=== PATIENT | male | born 1955 | race Hispanic/Latino ===

== ENCOUNTER 2017-11-19 16:13 | Emergency (ER) | payer SELFPAY ==
[2017-11-19] MEDS ORDERED: NORCO 5/325 PO ONE (19:37)
[2017-11-19] MEDS ORDERED: ZOFRAN ODT PO ONE (19:37)
[2017-11-19] MEDS ORDERED: BACTRIM DS PO ONE (19:38)
--- NOTE | 2017-11-19 19:44 | Emergency Department Report ---
- General Chief complaint: Animal Bite Stated complaint: INSECT BITE Time Seen by Provider: 11/19/17 19:37 Source: patient Mode of arrival: Ambulatory Limitations: No Limitations - History of Present Illness Initial comments: 62-year-old male past medical history hepatitis C, CAD presents with complaint of probable spider bite to the right inner thigh. Patient states it occurred 2 days ago. Patient is complaining of pain and abscess in right inner thigh. Denies fevers or chills. Patient is awake alert and oriented 3. Denies any other lesions. Visible small abscess with surrounding cellulitis right inner thigh. Approximately 3-4 cm in diameter. MD complaint: insect bite/sting, abscess/boil Onset/Timin -: days(s) Location: RLE (right inner thigh) Severity: moderate Severity scale (0 -10): 5 Quality: aching Consistency: constant Context: none Associated symptoms: denies other symptoms - Related Data Previous Rx's Medication Instructions Recorded Last Taken Type Acetaminophen/Codeine [Tylenol 1 tab PO Q6H PRN #5 tab 11/19/17 Unknown Rx /Codeine # 3 tab] Cephalexin [Keflex] 500 mg PO Q12HR #14 cap 11/19/17 Unknown Rx Sulfamethoxazole/Trimethoprim 1 each PO BID #14 tablet 11/19/17 Unknown Rx [Bactrim DS TAB] Allergies Allergy/AdvReac Type Severity Reaction Status Date / Time ketorolac [From Toradol] Allergy Unknown Verified 11/19/17 16:31 tramadol Allergy Unknown Verified 11/19/17 16:31 Abscess Boil HPI - HPI Chief Complaint: Animal Bite Stated Complaint: INSECT BITE Time Seen by Provider: 11/19/17 19:37 Home Medications: Previous Rx's Medication Instructions Recorded Last Taken Type Acetaminophen/Codeine [Tylenol 1 tab PO Q6H PRN #5 tab 11/19/17 Unknown Rx /Codeine # 3 tab] Cephalexin [Keflex] 500 mg PO Q12HR #14 cap 11/19/17 Unknown Rx Sulfamethoxazole/Trimethoprim 1 each PO BID #14 tablet 11/19/17 Unknown Rx [Bactrim DS TAB] Allergies/Adverse Reactions: Allergies Allergy/AdvReac Type Severity Reaction Status Date / Time ketorolac [From Toradol] Allergy Unknown Verified 11/19/17 16:31 tramadol Allergy Unknown Verified 11/19/17 16:31 ED Review of Systems ROS: Stated complaint: INSECT BITE Other details as noted in HPI Constitutional: denies: chills, fever Eyes: denies: eye pain, eye discharge, vision change ENT: denies: ear pain, throat pain Respiratory: denies: cough, shortness of breath, wheezing Cardiovascular: denies: chest pain, palpitations Endocrine: no symptoms reported Gastrointestinal: denies: abdominal pain, nausea, diarrhea Genitourinary: denies: urgency, dysuria Musculoskeletal: denies: back pain, joint swelling, arthralgia Skin: as per HPI, change in color. denies: rash, lesions Neurological: denies: headache, weakness, paresthesias Psychiatric: denies: anxiety, depression Hematological/Lymphatic: denies: easy bleeding, easy bruising ED Past Medical Hx - Surgical History Additional Surgical History: stent in the heart - Social History Smoking Status: Current Every Day Smoker - Medications Home Medications: Home Medications Medication Instructions Recorded Confirmed Last Taken Type Acetaminophen/Codeine [Tylenol 1 tab PO Q6H PRN #5 tab 11/19/17 Unknown Rx /Codeine # 3 tab] Cephalexin [Keflex] 500 mg PO Q12HR #14 cap 11/19/17 Unknown Rx Sulfamethoxazole/Trimethoprim 1 each PO BID #14 tablet 11/19/17 Unknown Rx [Bactrim DS TAB] ED Physical Exam - General Limitations: No Limitations General appearance: alert, in no apparent distress - Head Head exam: Present: atraumatic, normocephalic - Eye Eye exam: Present: normal appearance, PERRL, EOMI - ENT ENT exam: Present: mucous membranes moist - Neck Neck exam: Present: normal inspection - Respiratory Respiratory exam: Present: normal lung sounds bilaterally. Absent: respiratory distress - Cardiovascular Cardiovascular Exam: Present: regular rate, normal rhythm. Absent: systolic murmur, diastolic murmur, rubs, gallop - GI/Abdominal GI/Abdominal exam: Present: soft, normal bowel sounds - Rectal Rectal exam: Present: deferred - Extremities Exam Extremities exam: Present: normal inspection - Back Exam Back exam: Present: normal inspection - Neurological Exam Neurological exam: Present: alert, oriented X3 - Psychiatric Psychiatric exam: Present: normal affect, normal mood - Skin Skin exam: Present: warm, dry, intact, normal color. Absent: rash - Expanded Skin Exam Expanded Type of lesion: Present: abscess Description of rash: Present: tenderness, erythematous, swelling 1 - 3-4 cm diameter area of erythema with subcutaneous fluctuance. Small central head. ED Course Vital Signs 11/19/17 16:27 Temperature 98.4 F Pulse Rate 81 Respiratory 18 Rate Blood Pressure 158/87 O2 Sat by Pulse 96 Oximetry - I & D Right Medial Thigh Type of Procedure: Simple Site: right inner thigh Blade Size: 11 I & D Procedure: betadine prep Progress: Borders of cellulitis marked approximately 10 cm x 4 cm in diameter. Small abscess incised and drained with a single stab incision. Area infiltrated with lidocaine before incision. Procedure tolerated well with minimal bleeding. Tiny amount of purulent drainage. No packing placed. Covered with 4 x 4 gauze afterwards ED Medical Decision Making - Lab Data Result diagrams: 11/19/17 19:48 11/19/17 19:48 - Medical Decision Making A/P: Abscess, cellulitis, insect bite, leukopenia 1- Bactrim and Keflex twice a day for 7 days 2- incision and drainage of small abscess performed. Wound cultures sent. 3- short course of analgesics 4- I advised and emphasized the importance of patient to return to the ED if he experiences fevers, chills, increased pain or spread of erythema. Wound marked for borders of erythema. Direct Sales Professional Mr. Lew present for conversation. 5- patient states that he has been told in the past several times that he had low white blood cell count secondary to hepatitis C. Patient states he has attempted to follow up as an outpatient for hepatitis C and primary care treatment. I will also refer the patient to primary care Critical care attestation.: If time is entered above; I have spent that time in minutes in the direct care of this critically ill patient, excluding procedure time. ED Disposition Clinical Impression: Abscess Cellulitis Qualifiers: Site of cellulitis: extremity Site of cellulitis of extremity: lower extremity Laterality: right Qualified Code(s): L03.115 - Cellulitis of right lower limb Insect bite Qualifiers: Encounter type: initial encounter Qualified Code(s): W57.XXXA - Bitten or stung by nonvenomous insect and other nonvenomous arthropods, initial encounter Disposition: DC-01 TO HOME OR SELFCARE Is pt being admited?: No Does the pt Need Aspirin: No Condition: Stable Instructions: Cellulitis (ED), Insect Bite or Sting (ED), Abscess Incision and Drainage (ED) Prescriptions: Acetaminophen/Codeine [Tylenol /Codeine # 3 tab] 1 tab PO Q6H PRN #5 tab PRN Reason: Pain Cephalexin [Keflex] 500 mg PO Q12HR #14 cap Sulfamethoxazole/Trimethoprim [Bactrim DS TAB] 1 each PO BID #14 tablet Referrals: [facility] [Provider Group] - 3-5 Days [facility] [Outside] - 3-5 Days Time of Disposition: 21:23
[2017-11-19 20:01] LABS: Hematocrit 37.8 % (35.5-45.6); Hemoglobin 12.6 gm/dl (11.8-15.2); Mean Corpuscular HGB Conc 34 % (32-34); Mean Corpuscular Hemoglobin 28 pg (28-32); Mean Corpuscular Volume 84 fl (84-94); Platelet Count 141 K/mm3 (140-440); Red Blood Count 4.48 M/mm3 (3.65-5.03)
[2017-11-19 20:15] LABS: INR 0.89 (0.87-1.13)
[2017-11-19 20:17] LABS: BUN/Creatinine Ratio 20; Blood Urea Nitrogen 14 mg/dL (9-20); Calcium 8.8 mg/dL (8.4-10.2); Hemolysis Index 3
[2017-11-19 20:54] LABS: Basophils % (Manual) 0 % (0.0-1.8); Total Cells Counted 100
[2017-11-19 20:56] LABS: Platelet Estimate Consistent w Auto
[2017-11-19 20:57] LABS: Anisocytosis 1+
[2017-11-19] MEDS ORDERED: KEFLEX PO ONE (21:17)
[2017-11-19] MEDS ORDERED: TYLENOL PO ONE (21:18)
[2017-11-19 22:57] VITALS: BP 139/88
== END 2017-11-19 21:30 | disposition home or self-care (01) ==
LOC: ED 16:13
DX: S70.361A Insect bite (nonvenomous), right thigh, initial encounter (principal); L03.115 Cellulitis of right lower limb; F17.200 Nicotine dependence, unspecified, uncomplicated; Z88.6 Allergy status to analgesic agent; W57.XXXA Bitten or stung by nonvenomous insect and other nonvenomous arthropods, initial encounter; Y93.89 Activity, other specified; Y92.89 Other specified places as the place of occurrence of the external cause; Y99.8 Other external cause status
CPT/HCPCS: 36415; 80048; 82550; 85007; 85025; 85610; 85730; 87076; 87116; 87186; Q0162